=== PATIENT | female | born 1985 | race Asian ===

== ENCOUNTER 2024-05-08 20:52 | Emergency (ER) | payer MEDICAID ==
[2024-05-08] MEDS: Ibuprofen 600 MG Tab PO ONE (22:20)
== END 2024-05-09 09:48 | disposition home or self-care (01) ==
LOC: JP.ED 20:52
DX: S00.03XA Contusion of scalp, initial encounter (principal); F17.210 Nicotine dependence, cigarettes, uncomplicated; Z86.16 Personal history of COVID-19; Y04.2XXA Assault by strike against or bumped into by another person, initial encounter
CPT/HCPCS: 70450; 99283; 99284; A9270-GY